=== PATIENT | male | born 1995 | race Hispanic/Latino ===

== ENCOUNTER 2021-11-23 18:45 | Emergency (ER) | payer OTHER ==
[~2021-11-23] VITALS: Ht 167.6 cm; Wt 59.0 kg
[2021-11-23 20:00] LABS: BASOPHILS % (AUTO) 0.6 % (0.0-5.0); EOSINOPHILS % (AUTO) 1.6 % (0.0-8.0); HEMATOCRIT 41.1 % (42-54); LYMPHOCYTES % (AUTO) 39.2 % (21.0-51.0); MEAN CORPUSCULAR HEMOGLOBIN 31.1 pg (27.0-33.0); MEAN CORPUSCULAR HGB CONC 34.5 g/dL (32.0-36.0); MEAN CORPUSCULAR VOLUME 90.1 fL (79-99); MONOCYTES % (AUTO) 7.3 % (3.0-13.0); NEUTROPHILS % (AUTO) 51.1 % (40.0-77.0); PLATELET COUNT (AUTO) 173 K/uL (130-400); RED BLOOD CELL COUNT(AUTO) 4.56 MIL/uL (4.50-6.20); RED CELL DISTRIBUTION WIDTH 11.7 % (11.0-15.5); WHITE BLOOD COUNT (AUTO) 5.1 K/uL (4.8-10.8)
[2021-11-23 20:09] LABS: POTASSIUM 3.9 mmol/L (3.5-5.1)
[2021-11-23 20:14] LABS: ALBUMIN 4.4 g/dL (3.5-5.0); TOTAL PROTEIN, SERUM 8.1 g/dL (6.0-8.3)
[2021-11-23 20:32] VITALS: BP 128/74
== END 2021-11-23 20:39 | disposition home or self-care (01) ==
LOC: EDH 18:45
DX: F41.9 Anxiety disorder, unspecified (principal); R00.2 Palpitations; Z87.891 Personal history of nicotine dependence
CPT/HCPCS: 36415; 80053; 84484; 85025; 93005

== ENCOUNTER 2024-11-16 18:17 | Emergency (ER) | payer BC ==
[~2024-11-16] VITALS: Ht 170.2 cm; Wt 59.4 kg
[2024-11-16] MEDS: LIDOCAINE HCL 1% 20 ML VIAL INJ STA (19:28)
[2024-11-16] MEDS ORDERED: CLIN-141 PO (20:18)
--- NOTE | 2024-11-16 20:19 | ERN ---
ED Note History of Present Illness Stated Complaint: ABDOMINAL ABSCESS Chief Complaint: Abscess Time Seen by MD: 18:19 Time Seen by Midlevel: 18:20 Dictation: 29-year-old male coming in with complaints of abscess below the umbilical area going on for four days. Patient states it is painful, and worse when she sits as his belt and jeans rub on it. Denies having any medical or surgical problems. Denies any fever. Allergies: Coded Allergies: No Known Allergies (Unverified Allergy, Unknown, 11/23/21) Past Medical History Past Medical History: No Pertinent History, Other Additional Past Medical Hx: ADHD Surgical History: None Social History: Negative Review of System Dictation Constitutional: Negative for fever,chills, and weight loss Eyes: Negative for injury, pain,redness, and discharge ENT: Negative for injury,pain or swelling Cardiovascular: Negative for chest pain, palpitations, and edema Respiratory: Negative for shortness of breath, cough, and wheezing, Abdomen/GI: Negative for abdominal pain, nausea, vomiting, diarrhea, and constipation, abscess to the lower abdomen Back: Negative for injury and pain : Negative for injury, bleeding and discharge MS/Extremity: Negative for injury and deformity Skin: Negative for rash, and discoloration Neuro: Negative for headache, weakness, numbness, tingling, and seizure Psych: Negative for suicide ideation, homicidal ideation, and hallucinations Review of Systems: was completed Initial Vital Sign VS Vital Signs Date Time Temp Pulse Resp B/P (MAP) Pulse Ox O2 Delivery O2 Flow Rate FiO2 11/16/24 18:19 98.8 77 16 133/84 99 Room Air 0 11/16/24 19:15 21 Physical Exam Dictation General: awake, alert, NAD Head/Face: Normocephalic, atraumatic Eyes: PERRL, EOMI, vision at baseline ENT: oral cavity clear, TMs clear, no signs of infection Neck: Trachea midline, supple, no nuchal rigidity Cardiovascular: RRR, normal S1/S2, No MRGs, no JVD Respiratory: CTAB, no respiratory distress, No rales or wheezes Abdomen: Soft, non-tender, non-distended, normal bowel sounds, no guarding or rebound. Redness, minimal induration, all about 1 in below bit by an along the [place] where he has hair Skin: Warm, dry, normal turgor, no rash MS/Extremity: Pulses equal, no cyanosis, neurovascular intact, FROM Neuro: COAx4, GCS 15, strength 5/5, CN 2-12 intact, normal cerebellar exam, normal gait, Psych: Normal behavior, mood, and affect normal ED Course ED Course Orders Procedure Category Date Status Time Lidocaine Hcl 1% 20ml PHA 11/16/24 Complete Vial (Lidocaine Hc 18:36 Current Medications Medications (Trade) Dose Ordered Sig/Cheryl Route PRN Reason Start Time Stop Time Status Last Admin Dose Admin Lidocaine HCl (Lidocaine HCl 1% 20ml Vial) ONCE STAT INJ 11/16/24 18:36 11/16/24 18:38 DC 11/16/24 19:28 Vital Signs Date Time Temp Pulse Resp B/P (MAP) Pulse Ox O2 Delivery O2 Flow Rate FiO2 11/16/24 19:15 98.8 77 16 133/84 99 Room Air* 0 21 11/16/24 18:19 98.8 77 16 133/84 99 Room Air 0 Medical Decision Making MDM MDM: 29-year-old male coming in with complaints of abscess below the umbilical area going on for four days. Patient states it is painful, and worse when she sits as his belt and jeans rub on it. Denies having any medical or surgical problems. Denies any fever. See procedure note for I and D. patient asked me to stop with the drainage as he states it was too painful, offered more numbing medication refused periods patient states he would rather just take the antibiotics. Discussed with the patient she needs to make sure and his belt line does not irritate the area this could get more infected. Discussed on wound care with the patient. Discussed on when to return back to the hospital. Patient verbalized understanding, answered all questions. Differential diagnosis: Folliculitis, abscess, cellulitis Rationale: Tests considered and ordered secondary to shared decision making include: Previous outside records reviewed: Old ER visits. Risk of complication and/or morbidity or mortality of patient management: None Medications-Per medication reconciliation Need for hospitalization: Patient does not meet criteria for hospitalization. Need for emergency major/minor surgery: No There are no social concerns with this patient. Prescription drug management Prescriptions will include symptomatic care Patient's prior external medical records from other ER visits were reviewed by me as indicated. Prior testing and results from previous visits were reviewed. Prior tests were taken into account with medical decision making and resource utilization, independent historian/historians were used to obtain complete medical history. I independently interpreted the test that were performed, results were reviewed by me and considered findings on radiology if ordered. Medical management and examination interpretation discussions were had by me with other qualified healthcare professionals as indicated for the patient's care. Procedure Blade Size: 11 I & D Procedure: no betadine prep Progress Abscess near the umbilical area, use lidocaine about 5 cc. Drained a small amount of pus before patient asked me to stop. DX & DISP Disposition: Discharge Departure Impression: Primary Impression: Abdominal wall abscess Additional Impression: Folliculitis Condition: Stable Scripts Clindamycin HCl (Clindamycin HCl) 300 Mg Capsule 1 CAP PO TID for 10 Days, #30 CAP 0 Refills Prov: AURELIO KILLIAN PSYCHOLOGY ASSOCIATE 11/16/24 Additional Instructions: Keep area clean and dry. Use warm compresses to help drain . Take antibiotics as prescribed. Return to the hospital if you notice it worsening and or fever. Referrals: SELF,REFERRAL (PCP) Time of Disposition: 20:19 I have reviewed the case, and I agree with, Diagnosis and Plan AURELIO KILLIAN PSYCHOLOGY ASSOCIATE Nov 16, 2024 20:19
[2024-11-16 20:40] VITALS: BP 124/78; PULSE 72; RESP 16; TEMP 98.8; O2SAT 99
== END 2024-11-16 20:41 | disposition home or self-care (01) ==
LOC: EDH 18:17
DX: L02.211 Cutaneous abscess of abdominal wall (principal); L73.9 Follicular disorder, unspecified
CPT/HCPCS: 10060; 99283